=== PATIENT | female | born 1985 | race Caucasian/White ===

== ENCOUNTER → 2018-04-13 11:21 | Outpatient (REF) | payer MEDICAID, SELFPAY | LOC: LBN 11:21 | PROVIDERS: PCP Internal Medicine; Visit Provider Nurse Practitioner Family | DX: N39.0 Urinary tract infection, site not specified (principal) | CPT/HCPCS: 87077; 87086; 87186 ==

== ENCOUNTER 2018-08-28 12:43 | Outpatient (REF) | payer MEDICAID, SELFPAY ==
--- NOTE | 2018-08-28 12:08 | PAPFT_PTH ---
PATIENT: Barbara Palomares LOC: [facility] U#:[id number] AGE/SX: 32/F ROOM: RE08/28/[address]: Piyush Hamilton MD : 1985 BED: DIS: 08/28/2018 SPEC #: [id number] RECD: 08/28/18 17:56 STATUS: DAVIS GARCIA #: [id number] KATHI: 08/28/18 12:[address]: Piyush Hamilton DEPT: [facility] Cytology RECD BY: Enriqueta Hollis ENTERED: 08/28/18 17:56 SP TYPE: PAPFT OTHR DR: Crescencio Caputo Tissues: 1 - CX/ENDOCX FOR PAP SMEARS Procedures: PAP THIN PREP/[facility] Screening HPV DNA PROBE Comments: [id number]
== END 2018-08-28 13:03 ==
LOC: LBN 12:43
PROVIDERS: PCP Internal Medicine; Visit Provider Obstetrics & Gynecology
DX: Z12.4 Encounter for screening for malignant neoplasm of cervix (principal); Z11.51 Encounter for screening for human papillomavirus (HPV)
CPT/HCPCS: 88142; 87624

== ENCOUNTER 2018-08-29 13:24 | Outpatient (REF) | payer MEDICAID, SELFPAY | END 2018-08-29 13:44 | LOC: NCHCN 13:24 | PROVIDERS: PCP Internal Medicine; Visit Provider Nurse Practitioner Family | DX: N39.0 Urinary tract infection, site not specified (principal) | CPT/HCPCS: 87086 ==

== ENCOUNTER 2019-06-14 16:30 | Outpatient (REF) | payer MEDICAID, SELFPAY ==
[2019-06-14 20:27] LABS: HCT 37.6 % (36.0-46.0); HGB 12.5 g/dL (12.0-15.5); Mean Corp. HGB Concentration 33.2 g/dL (32.0-36.0); Mean Corpuscular Hemoglobin 29.2 pg (27.0-33.0); Mean Corpuscular Volume 87.9 fL (80-95); Mean Platelet Volume 9.5 fL (8.0-11.0); Platelet Count 227 x1000/uL (130-400); RBC 4.28 m/cumm (4.00-5.20); RBC Distribution Width 12.9 % (11.7-14.6); White Blood Cell Count 5.59 k/cumm (4.4-10.8)
[2019-06-14 20:45] LABS: TSH 1.57 uIU/mL (0.36-3.74)
== END 2019-06-14 16:50 ==
LOC: NCHCN 16:30
PROVIDERS: PCP Internal Medicine; Visit Provider Internal Medicine
DX: F19.10 Other psychoactive substance abuse, uncomplicated (principal); B97.7 Papillomavirus as the cause of diseases classified elsewhere
CPT/HCPCS: 85027; 84443

== ENCOUNTER 2020-05-20 11:24 | Outpatient (REF) | payer MEDICAID, SELFPAY ==
--- NOTE | 2020-05-20 10:20 | ENDO_PTH ---
PATIENT: Barbara Palomares LOC: [facility] U#:[id number] AGE/SX: 34/F ROOM: RE05/20/[address]: Twila Cobb : 1985 BED: DIS: 05/20/2020 SPEC #: [id number] RECD: 05/20/20 12:45 STATUS: DAVIS REJosy #: [id number] KATHI: 05/20/20 10:[address]: Twila Cobb DEPT: Surgical Specimen RECD BY: Enriqueta Hollis ENTERED: 05/20/20 12:45 SP TYPE: Endo OTHR DR: Crescencio Caputo Tissues: 1 - ENDOCERVICAL BX/CURRETTE 2 - CERVICAL BIOPSY Procedures: GROSS AND MICRO LEVEL 4 IMMUNOPEROXIDASE STAIN P16 IPEX Comments: [id number]
== END 2020-05-20 11:44 ==
LOC: LBN 11:24
PROVIDERS: PCP Internal Medicine; Visit Provider Obstetrics & Gynecology Gynecology
DX: N87.1 Moderate cervical dysplasia (principal); N87.0 Mild cervical dysplasia; Z87.42 Personal history of other diseases of the female genital tract
CPT/HCPCS: 88305; 88342; 88361

== ENCOUNTER 2021-12-20 15:36 | Outpatient (REF) | payer MEDICAID, SELFPAY ==
[2021-12-20 20:32] LABS: Calculated LDL 166 mg/dL (<100); Cholesterol 245 mg/dL (<200); HDL Cholesterol 70 mg/dL (40-60); TSH 2.99 uIU/mL (0.36-3.74); Triglyceride 49 mg/dL (<150)
[2021-12-21 10:22] LABS: Glucose 96 mg/dL (74-106)
== END 2021-12-20 15:37 | disposition home or self-care (01) ==
LOC: NCHCN 15:36
PROVIDERS: PCP Internal Medicine; Visit Provider Internal Medicine
DX: F19.10 Other psychoactive substance abuse, uncomplicated (principal); Z00.00 Encounter for general adult medical examination without abnormal findings; Z68.33 Body mass index [BMI] 33.0-33.9, adult; E66.3 Overweight
CPT/HCPCS: 80061; 82306; 82947; 83036; 84443

== ENCOUNTER 2022-06-20 18:00 | Outpatient (REF) | payer MEDICAID, SELFPAY ==
[2022-06-20 19:25] LABS: HGB 13.5 g/dL (11.2-15.7); MCH 30.4 pg (27.0-33.0); MCHC 34.6 % (32.0-36.0); MCV 88 fL (80-95); MPV 9.5 fL (8.0-11.0); Platelet Count 210 10^3/uL (130-400); RBC 4.44 10^6/uL (3.93-5.22); RDW 12.6 % (11.7-14.6); RDW-SD 40.4 fL; WBC 7.22 10^3/uL (4.4-10.8)
[2022-06-20 20:12] LABS: NT-proBNP 91 pg/mL (<300); TSH 4.21 uIU/mL (0.36-3.74)
[2022-06-21 19:57] LABS: FSH 6.5 mIU/mL (See Note); LH 6.5 mIU/mL (See Note); Prolactin 61.4 ng/mL (See Note)
== END 2022-06-20 18:01 | disposition home or self-care (01) ==
LOC: NCHCN 18:00
PROVIDERS: PCP Internal Medicine; Visit Provider Internal Medicine
DX: R06.00 Dyspnea, unspecified (principal); K30 Functional dyspepsia; F41.0 Panic disorder [episodic paroxysmal anxiety]; Z78.0 Asymptomatic menopausal state
CPT/HCPCS: 85027; 83001; 83002; 83880; 84146; 84443

== ENCOUNTER 2024-06-03 18:30 | Outpatient (REF) | payer SELFPAY ==
[2024-06-04 18:30] LABS: Prolactin 2.5 ng/mL (See Note)
== END 2024-06-03 18:31 | disposition home or self-care (01) ==
LOC: NCHCN 18:30
PROVIDERS: PCP Internal Medicine; Visit Provider Internal Medicine
DX: D35.2 Benign neoplasm of pituitary gland (principal)
CPT/HCPCS: 84146

== ENCOUNTER 2025-03-24 18:41 | Outpatient (REF) | payer SELFPAY ==
[2025-03-24 19:55] LABS: TSH 2.24 uIU/mL (0.36-3.74)
== END 2025-03-24 18:42 | disposition home or self-care (01) ==
LOC: NCHCN 18:41
PROVIDERS: PCP Internal Medicine; Visit Provider Internal Medicine
DX: D35.2 Benign neoplasm of pituitary gland (principal)
CPT/HCPCS: 84403; 84146; 84443